=== PATIENT | female | born 1970 | race Two or more races ===

== ENCOUNTER 2023-10-22 23:17 | Emergency (ER) | payer OTHER ==
[~2023-10-22] VITALS: Ht 162.6 cm; Wt 61.2 kg
[2023-10-23 00:08] LABS: Basophils # (auto) 0 10 ^3/uL (0-0.2); Basophils % (auto) 0.1 % (0.0-2.0); Eosinophils # (auto) 0 10 ^3/uL (0-0.8); Eosinophils % (auto) 0.1 % (0.0-7.0); Hematocrit 39.9 % (36.0-46.0); Hemoglobin 13.1 g/dL (12.2-16.2); Lymphocytes # (auto) 0.9 10 ^3/uL (0.4-5.4); Lymphocytes % (auto) 4.2 % (10.0-50.0); Mean Corpuscular Hemoglobin 30.7 pg (28.0-32.0); Mean Corpuscular Hgb Conc. 32.8 g/dL (32.0-36.0); Mean Corpuscular Volume 93.8 fL (80.0-100.0); Monocytes # (auto) 1.2 10 ^3/uL (0-1.3); Monocytes % (auto) 5.5 % (0.0-12.0); Neutrophils # (auto) 19.5 10 ^3/uL (1.6-8.6); Neutrophils % (auto) 90.1 % (37.0-80.0); Red Blood Cells 4.26 10^6/uL (4.0-5.20); Red Cell Distribution Width 14.1 % (11.8-14.3); White Blood Cell 21.6 10^3/uL (4.4-10.8)
[2023-10-23 00:20] VITALS: PULSE 69; RESP 18; O2SAT 99
[2023-10-23 00:27] LABS: Alanine Aminotransferase 24 U/L (7-40); Albumin 4.3 g/dL (3.2-4.8); Alkaline Phosphatase 53 U/L (46-116); Anion Gap 8 (5-15); Aspartate Aminotransferase 35 U/L (13-40); BUN/Creatinine Ratio 10.8 (10.0-20.0); Blood Urea Nitrogen 12 mg/dL (9-23); Calcium 9.6 mg/dL (8.5-10.1); Carbon Dioxide 29 mmol/L (20-30); Chloride 105 mmol/L (98-107); Glucose 120 mg/dL (74-106); Potassium 3.9 mmol/L (3.5-5.1); Sodium 142 mmol/L (136-145)
[2023-10-23 00:28] LABS: Bilirubin, Total 0.6 mg/dL (0.2-1.0); Total Protein 6.5 g/dL (5.7-8.2)
[2023-10-23] MEDS: HYDROcodone-ACET 10/325MG TAB PO ONE (00:38)
[2023-10-23] MEDS ORDERED: cefTRIAXone 2GM/50ML D5W 50 ML IV ONE (01:30)
[2023-10-23] MEDS: cefTRIAXone 1GM/50ML D5W 50 ML IV ONE ×2 (02:27→03:21)
[2023-10-23 02:49] LABS: Urine Bacteria None Seen /hpf (None Seen)
[2023-10-23] MEDS: SODIUM CHLORIDE 0.9% 1,000 ML IV ONE (02:52)
[2023-10-23 03:20] LABS: Urine Blood 3+ /uL (Negative); Urine Budding Yeast OCCASIONAL /hpf (None Seen); Urine Clarity Turbid (Clear); Urine Color Light-Yellow (Yellow); Urine Mucus FEW (None Seen); Urine Protein, UAD 2+ (Negative); Urine Specific Gravity 1.026 (1.001-1.035); Urine Urobilinogen Normal (Negative); Urine WBC 4 /hpf (0 - 5); Urine pH 5.5 (5.0-9.0)
[2023-10-23 03:29] LABS: Amphetamine Screen, Urine Neg (NEGATIVE); Barbiturate Scree,Urine Neg (NEGATIVE); Benzodiazephine Screen, Urine Neg (NEGATIVE); Cannabinoid Screen, Urine Neg (NEGATIVE); Cocaine Screen, Urine Neg (NEGATIVE); Opiate Scree,Urine Neg (NEGATIVE); Phencyclidine Screen, Urine Neg (NEGATIVE)
[2023-10-23] MEDS: BACITRACIN TOP OINT 1 UD PKG TOP ONE (03:55)
[2023-10-23] MEDS: IOHEXOL 350 MG/ML 100ML IJ ONE (04:17)
[2023-10-23 08:00] VITALS: PULSE 63; RESP 17; O2SAT 98
[2023-10-23 09:28] VITALS: BP 94/47; PULSE 60; RESP 13; TEMP 98.3; O2SAT 96
== END 2023-10-23 09:45 | disposition short-term general hospital (02) ==
LOC: ER 23:17 → EDBD 23:17 → ER 10-23 09:45
DX: S01.01XA Laceration without foreign body of scalp, initial encounter (principal); A41.9 Sepsis, unspecified organism; N39.0 Urinary tract infection, site not specified; R79.89 Other specified abnormal findings of blood chemistry; R55 Syncope and collapse; Z79.899 Other long term (current) drug therapy; X58.XXXA Exposure to other specified factors, initial encounter; Y93.89 Activity, other specified; Y92.89 Other specified places as the place of occurrence of the external cause; Y99.8 Other external cause status
CPT/HCPCS: 12001; 36415; 80053; 80307; 80320; 81001; 81025; 83605; 83880; 84484; 85025; 85379; 87040; 93005; 96365; 96366; 99285; J0696; Q9967

== ENCOUNTER 2024-08-07 17:41 | Emergency (ER) | payer OTHER ==
[~2024-08-07] VITALS: Ht 162.6 cm; Wt 53.0 kg
--- NOTE | 2024-08-07 18:15 | ED.PDOC ---
History of Present Illness HPI Comments 54 y/o F presents from [facility] urgent care for pain, bruising, and swelling to 4th and 5th digits on left-hand s/p injury, today. Patient comments on being sent from urgent care after having her digits crushed by an object that feel directly on it, earlier, this evening. She reports no loss of sensation, weakness, numbness, tingling, additional injuries, or other associated symptoms or modifiers at this time. Chief Complaint: Upper Extremity Time Seen by MD: 18:00 Primary Care Provider: ENRIQUE Reviewed Notes: Nurses Notes, Medications, Allergies Allergies: Coded Allergies: NO KNOWN ALLERGIES (Unverified , 10/23/23) Information Source: Patient Mode of Arrival: Ambulatory Severity: Moderate Timing: Hours Duration: Since onset Prehospital treatment: None Past Medical History PAST MEDICAL HISTORY: Denies Surgical History (Other): meniscus tear repair TELECOMMUNICATIONS ENGINEER History: No Pertinent TELECOMMUNICATIONS ENGINEER History Social History Smoker: Non-Smoker Alcohol: Denies ETOH Use Drugs: Denies Drug Use Lives In: Home Musculoskeletal: reports: others (4th and 5th digit on left hand pain ) Integumetry: reports: bruises (4th and 5th digit on left hand ) All Other Systems: Reviewed and Negative (negative unless otherwise stated above or in HPI) Physical Exam General Appearance: No Apparent Distress, Normal HEENT: Normal ENT Inspection, Pharynx Normal, TMs Normal Neck: Full Range of Motion, Non-Tender, Normal, Normal Inspection Respiratory: Chest Non-Tender, Lungs Clear, No Accessory Muscle Use, No Respiratory Distress, Normal Breath Sounds Cardiovascular: No Edema, No JVD, No Murmur, No Gallop, Normal Peripheral Pulses, Regular Rate/Rhythm Breast Exam: Deferred Gastrointestinal: No Organomegaly, Non Tender, No Pulsatile Mass, Normal Bowel Sounds, Soft Genitalia: Deferred Pelvic: Deferred Rectal: Deferred Extremities: No calf tenderness, Normal capillary refill, Normal range of motion, No pedal edema, Tender (proximal 4th and 5th digit on left hand ) Musculoskeletal : Location: Left Extremity Location: Finger 4, Little Finger Apperance: Normal, Tenderness Neurologic: Alert, 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 Was a procedure done?: Yes Sedation Sedation?: No Informed consent obtained: Yes Other Procedure Procedure left 5th finger splint placed properly. intact neurovascular functions Differential Dx Considerations may include: fracture, dislocation, contusions, bruising, sprain, strain X-Ray, Labs, Meds, VS Vital Signs Date Time Temp Pulse Resp B/P (MAP) Pulse Ox O2 Delivery O2 Flow Rate FiO2 08/07/24 18:01 98.1 69 16 109/68 (82) 100 Time of 1ST Reevaluation: 18:30 Reevaluation 1ST: Unchanged Patient Education/Counseling: Diagnosis, Treatment, Prognosis, Need For Follow Up Family Education/Counseling: No Family Present Departure 1 Departure Time of Disposition: 18:33 Impression: Primary Impression: Finger fracture, left Qualified Codes: S62.647A - Nondisplaced fracture of proximal phalanx of left little finger, initial encounter for closed fracture Disposition: 01 HOME / SELF CARE / HOMELESS Condition: Good Additional Instructions: cold o Written Prescriptions cold compress 15 minutes per hour for the first 6 hours. rest. follow up with your doctor in 3 days. return to ER for any concerns Discharged With: Self Critical Care Note Critical Care Time?: No Stability Stability form required: No Heart Score Heart Score: Heart Score Response (Comments) Value History N/A 0 EKG N/A 0 Age N/A 0 Risk Factors N/A 0 Troponin N/A 0 Total 0 I personally scribed for SRAVANI YUSUF MD ([email or web address]) on 08/07/24 at 18:15. Electronically submitted by Lopez Rodriguez ([email or web address]). SRAVANI YUSUF MD Aug 07, 2024 18:15
--- NOTE | 2024-08-07 18:23 | DVH ---
EXAMINATIONS: 3 views of the left hand CLINICAL HISTORY: injury COMPARISON: None Findings and impression: Comminuted, mainly transversely oriented, mid diaphyseal fracture of the 5th proximal phalanx.
[2024-08-07] MEDS ORDERED: IBU600T PO (18:47)
[2024-08-07 18:51] VITALS: BP 110/61; PULSE 61; RESP 16; TEMP 98.1; O2SAT 97
== END 2024-08-07 19:00 | disposition home or self-care (01) ==
LOC: ER 17:41
DX: S62.617A Displaced fracture of proximal phalanx of left little finger, initial encounter for closed fracture (principal); W23.0XXA Caught, crushed, jammed, or pinched between moving objects, initial encounter; Y93.89 Activity, other specified; Y92.89 Other specified places as the place of occurrence of the external cause; Y99.8 Other external cause status
CPT/HCPCS: 29130; 73130